=== PATIENT | male | born 1995 | race Two or more races ===

== ENCOUNTER 2018-06-06 21:43 | Emergency (ER) | payer MEDICAID ==
[~2018-06-06] VITALS: Ht 190.5 cm; Wt 163.3 kg
[2018-06-06 21:51] VITALS: BP 148/84
== END 2018-06-07 01:27 | disposition left against medical advice (07) ==
LOC: EDBD 21:43 → ER 21:53
DX: M54.5 Low back pain (principal); Z53.21 Procedure and treatment not carried out due to patient leaving prior to being seen by health care provider